=== PATIENT | male | born 1940 | race Caucasian/White ===

== ENCOUNTER 2022-01-11 09:33 | Emergency (ER) | payer MEDICARE, OTHER ==
[~2022-01-11] VITALS: Ht 177.8 cm; Wt 89.4 kg
[2022-01-11] MEDS ORDERED: Voltaren100 GM TOP (11:07)
[2022-01-11] MEDS ORDERED: Robaxin750 MG PO (11:07)
== END 2022-01-11 11:25 | disposition home or self-care (01) ==
LOC: ER 09:33
DX: M54.2 Cervicalgia (principal); M62.830 Muscle spasm of back; Z88.0 Allergy status to penicillin; Z91.048 Other nonmedicinal substance allergy status
CPT/HCPCS: 99283

== ENCOUNTER 2022-04-29 21:56 | Emergency (ER) | payer MEDICARE, OTHER ==
[~2022-04-29] VITALS: Ht 177.8 cm; Wt 86.2 kg
[~2022-04-29 21:56] MED LIST: NITR100CA PO; Robaxin750 MG PO; Voltaren100 GM TOP
== END 2022-04-30 03:20 | disposition home or self-care (01) ==
LOC: ER 21:56
DX: T84.021A Dislocation of internal left hip prosthesis, initial encounter (principal); Z88.0 Allergy status to penicillin; Z91.041 Radiographic dye allergy status; Z79.899 Other long term (current) drug therapy; Z87.891 Personal history of nicotine dependence; X58.XXXA Exposure to other specified factors, initial encounter
CPT/HCPCS: 27266; 73502; 96374-59; 99284-25; J1885; J2704; J7030